=== PATIENT | male | born 1980 | race African-American/Black ===

== ENCOUNTER → 2020-02-17 | Outpatient (CLI) | payer MEDICARE, MEDICAID | END | disposition home or self-care (01) | LOC: STAR 13:49 | PROVIDERS: ATTEND Anesthesiology | DX: Z01.818 Encounter for other preprocedural examination (principal); Z11.59 Encounter for screening for other viral diseases | CPT/HCPCS: 36415; 87635 ==

== ENCOUNTER 2020-04-27 06:50 | Day surgery (SDC) | payer MEDICARE, MEDICAID ==
[~2020-04-27] VITALS: Ht 193 cm; Wt 91.3 kg
[~2020-04-27 06:50] MED LIST: AMLO-150 PO; B,C/1TAB PO; CALC0.25 PO; CINA30TA2 PO; FURO20TA3 PO; LABE100T6 PO; VALS40TA2 PO
[2020-04-27] MEDS ORDERED: HEPARIN 1,000 UNITS/ML, 10ML ONE (06:55)
[2020-04-27] MEDS ORDERED: BUPIVACAINE/PF 0.5% ONE ×2 (06:55→09:23)
[2020-04-27] MEDS ORDERED: PROTAMINE SULFATE 10 MG/ML, 5ML ONE (06:55)
[2020-04-27] MEDS ORDERED: EPINEPHRINE 1 MG/ML, 1ML ONE (06:55)
[2020-04-27 07:21] VITALS: BP 137/85
[2020-04-27] MEDS ORDERED: SODIUM CHLORIDE 0.9% 1,000 ML IV ONE (07:25)
[2020-04-27] MEDS ORDERED: CHLORHEXIDINE 15 ML UDC MM STA (07:25)
[2020-04-27] MEDS ORDERED: CHLORHEXIDINE 15 ML UDC ONE (07:27)
[2020-04-27 07:54] LABS: BASOPHILS % (AUTO) 1 % (0-1); EOSINOPHILS % (AUTO) 3 % (1-7); LYMPHOCYTES % (AUTO) 26 % (22-44); MEAN CORPUSCULAR HEMOGLOBIN 28.9 pg (27.5-34.5); MEAN CORPUSCULAR HGB CONC 32.8 g/dL (33.2-36.2); MEAN PLATELET VOLUME 9.5 fL (7.4-10.4); MONOCYTES % (AUTO) 8 % (2-9); NEUTROPHILS % (AUTO) 62 % (42-75); PLATELET COUNT 177 x10^3/uL (130-400); RED BLOOD COUNT 3.83 x10^6/uL (4.38-5.82); RED CELL DISTRIBUTION WIDTH 16.5 % (9.4-14.8)
[2020-04-27 08:02] LABS: ALBUMIN 4.1 g/dL (3.4-5.0); ANION GAP 8 mmol/L (5-15); CALCIUM 8.7 mg/dL (8.5-10.1); CHLORIDE 101 mmol/L (98-107)
[2020-04-27 08:03] LABS: INTERNATIONAL NORMALIZED RATIO 1.02 (0.93-1.1); PROTHROMBIN TIME 10.8 Seconds (9.6-11.5)
[2020-04-27 08:07] LABS: MD NO
[2020-04-27 08:08] LABS: ALANINE AMINOTRANSFERASE 28 U/L (12-78); ALKALINE PHOSPHATASE 119 U/L (45-117); BILIRUBIN,TOTAL 0.5 mg/dL (0.2-1.0); TOTAL PROTEIN 7.4 g/dL (6.4-8.2)
[2020-04-27] MEDS ORDERED: MIDAZOLAM 1 MG/ML, 2ML ONE ×2 (09:32→13:36)
[2020-04-27] MEDS ORDERED: FENTANYL PF 250 MCG/5ML ONE ×2 (09:32→13:22)
[2020-04-27] MEDS ORDERED: PROPOFOL 10 MG/ML, 20ML ONE (09:33)
[2020-04-27] MEDS ORDERED: DEXAMETHASONE 4 MG/ML, 1ML ONE (09:33)
[2020-04-27] MEDS ORDERED: SUCCINYLCHOLINE 20 MG/ML, 10ML ONE (09:33)
[2020-04-27] MEDS ORDERED: CEFAZOLIN 1,000 MG ONE ×2 (09:34→09:37)
[2020-04-27] MEDS ORDERED: hydrALAzine 20 MG/ML, 1ML ONE (09:37)
[2020-04-27] MEDS ORDERED: ROCURONIUM 10MG/ML,5ML ONE (09:37)
[2020-04-27] MEDS ORDERED: OXYcodone 5 MG/5 ML ORAL.SOL UDC PO PRN (10:00)
[2020-04-27] MEDS ORDERED: PROMETHAZINE 25 MG/ML, 1ML IVPush PRN (10:00)
[2020-04-27] MEDS ORDERED: HYDROmorphone 1 MG/ML, 1ML INJ IVPush PRN (10:00)
[2020-04-27] MEDS ORDERED: hydrALAzine 20 MG/ML, 1ML IV PRN (10:00)
[2020-04-27] MEDS ORDERED: EPHEDRINE 50 MG/ML, 1ML IVPush PRN (10:00)
[2020-04-27] MEDS ORDERED: ACETAMINOPHEN 325 MG TABLET PO PRN (10:00)
[2020-04-27] MEDS ORDERED: DIAZEPAM 5 MG/ML, 2ML IVPush PRN (10:00)
[2020-04-27] MEDS ORDERED: MEPERIDINE/PF 25MG/0.5ML IVPush PRN (10:00)
[2020-04-27] MEDS ORDERED: MIDAZOLAM 1 MG/ML, 2ML IV PRN (10:00)
[2020-04-27] MEDS ORDERED: ALBUTEROL SULFATE 2.5 MG/3 ML NPPB PRN (10:00)
[2020-04-27] MEDS ORDERED: PROMETHAZINE 12.5 MG SUPP PR PRN (10:00)
[2020-04-27] MEDS ORDERED: DIPHENHYDRAMINE 50 MG/ML, 1ML IVPush PRN (10:00)
[2020-04-27] MEDS ORDERED: FENTANYL PF 100 MCG/2ML IV PRN (10:00)
[2020-04-27] MEDS ORDERED: ONDANSETRON 2MG/ML, 2ML IVPush PRN (10:00)
[2020-04-27] MEDS ORDERED: LABETALOL 5MG/ML, 20ML IV PRN (10:00)
[2020-04-27] MEDS ORDERED: FENTANYL PF 100 MCG/2ML ONE (10:15)
[2020-04-27] MEDS ORDERED: ONDANSETRON 2MG/ML, 2ML ONE (10:45)
[2020-04-27] MEDS ORDERED: NALOXONE 0.4 MG/ML, 1ML ONE ×2 (11:25→11:44)
[2020-04-27] MEDS ORDERED: FLUMAZENIL 0.1 MG/1 ML, 5ML ONE (11:25)
[2020-04-27] MEDS ORDERED: FLUMAZENIL 0.1 MG/1 ML, 5ML IVPush ONE (11:30)
[2020-04-27] MEDS: NALOXONE 0.4 MG/ML, 1ML IVPush PRN ×3 (11:30→11:48)
== END 2020-04-27 13:00 | disposition home or self-care (01) ==
LOC: OUT 06:50
PROVIDERS: ATTEND Surgery
DX: I12.0 Hypertensive chronic kidney disease with stage 5 chronic kidney disease or end stage renal disease (principal); N18.6 End stage renal disease; Z20.828 Contact with and (suspected) exposure to other viral communicable diseases; F17.210 Nicotine dependence, cigarettes, uncomplicated; Z79.899 Other long term (current) drug therapy; Z99.2 Dependence on renal dialysis; Z83.3 Family history of diabetes mellitus; Z82.49 Family history of ischemic heart disease and other diseases of the circulatory system
CPT/HCPCS: 36415; 36821; 37607; 80053; 82962; 85025; 85610; 85730; 87635; J0330; J0360; J0690; J1100; J1644; J2250; J2310; J2405; J2704; J2720; J3010; J7030; J0171